=== PATIENT | female | born 1955 | race Caucasian/White ===

== ENCOUNTER → 2016-12-15 | Outpatient (CLI) | payer MEDICARE ==
--- NOTE | ~2016-12-15 | MR18 ---
[facility]. [facility] A Service of [facility] & [facility] RADIOLOGY TEXT RESULTS PATIENT: REGGIE AGUIAR LOCATION: [facility] : 51 UNIT #: [id number] AGE: [address]: Marilyn Dsouza APRN SEX: F ORDER DR: [id number] [place] [id number] O MR#: [id number] Acc #: [id number] NAME: REGGIE AGUIAR : 1955 SEX: F STUDY DATE/TIME: 12/15/2016 9:18 UNIT: [facility] ROOM: STUDY DESCRIPTION: MR Brain Wo Contrast Attending Physician: Marilyn Dsouza A.P.R.N. Referring Physician: Marilyn Dsouza A.P.R.N. Ordering Physician: Marilyn Dsouza A.P.R.N. Primary Care Physician: Marilyn Dsouza A.P.R.N. MRI CENTER REPORT This report is preliminary unless electronic signature is present. EXAM Brain MR without contrast, 12/15/2016. PROCEDURE Routine brain MR without contrast. COMPARISON Prior brain MRI, 04/18/2014. HISTORY Bilateral arm weakness, headache, and dizziness for 1 month. FINDINGS There is no MR evidence of acute ischemia or other restricted diffusion. There is no hydrocephalus or extraaxial fluid collection. There is extensive fluid opacification of the mastoid air cells bilaterally, left greater than right, and there is left temporal lobe encephalomalacia, presumably the result of some prior insult, but etiology uncertain. There are mild nonspecific white matter changes, but the brain is otherwise normal. There is no evidence of acute or chronic hemorrhage. Bone marrow signal is normal, and the extracranial soft tissues are normal. IMPRESSION 1. No acute abnormality, other than fluid in the mastoid air cells and left middle ear; findings more pronounced on the left than right. No acute ischemia or intracranial hemorrhage. 2. 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 [facility] A Service of [facility] & [facility] RADIOLOGY TEXT RESULTS PATIENT: REGGIE AGUIAR LOCATION: [facility] : 51 UNIT #: [id number] AGE: [address]: Marilyn Dsouza APRN SEX: F ORDER DR: Dictated by... Cecil Brown M.D. THIS IS AN ELECTRONICALLY VERIFIED REPORT Cecil Brown M.D. at 12/20/2016 12:16 PM DENISE/simon TD: 12/15/2016 17:31 JOB #: [id number] MRI CENTER REPORT Page 1 of 1
== END | disposition home or self-care (01) ==
LOC: SMRI 08:56
DX: R47.81 Slurred speech (principal); M62.81 Muscle weakness (generalized); G93.89 Other specified disorders of brain
CPT/HCPCS: 70551